=== PATIENT | female | born 1995 | race Caucasian/White ===

== ENCOUNTER 2018-08-10 09:28 | Observation (INO) | payer MEDICAID ==
[2018-08-10] MEDS ORDERED: ONDANSETRON 4 MG/2 ML VIAL ONE ×2 (09:34→13:24)
[2018-08-10] MEDS ORDERED: ONDANSETRON 4 MG/2 ML VIAL IVP ONE ×2 (09:34→09:36)
[2018-08-10] MEDS ORDERED: FAMOTIDINE 20 MG/NACL 50 ML IV ONE (09:36)
[2018-08-10] MEDS ORDERED: NS 1,000 ML IV ONE (09:36)
[2018-08-10] MEDS ORDERED: HYDROmorphONE/DILAUDID 2 MG/ML INJ IVP ONE ×2 (09:51→21:40)
--- NOTE | 2018-08-10 09:57 | EDPHY ---
H & P Time Seen by Provider: 08/10/18 09:34 HPI/ROS: HPI Abdominal pain, nausea, vomiting, diarrhea. 22-year-old female by private vehicle with her and son. This patient reports she woke up this morning with lower abdominal pain. This was followed by nausea and several episodes of nonbilious, nonbloody vomiting. She has also had watery diarrhea. No bloody or melenic stool. She reports that she is currently menstruating. He states that this pain is much worse and different from her prior menstrual cramps. She denies any ill contacts. No change in diet. No foreign travel. She denies any prior abdominal surgical history. Last meal was last night. ROS: Constitutional: No fever, no chills. No weakness. Eyes: No discharge. No changes in vision. ENT: No sore throat. No nasal congestion or rhinorrhea. Respiratory: No cough. No shortness of breath. Cardiac: No chest pain, no palpitations. Gastrointestinal: As above. Genitourinary: No hematuria. No dysuria or increased frequency with urination. Musculoskeletal: No back pain. No neck pain. No myalgias or arthralgias. Skin: No rashes. Neurological: No headache. No focal weakness or altered sensation. Past medical history: No past medical history. Social history: Nonsmoker. Here with her . Denies alcohol. Physical Exam: General Appearance: Alert, intermittently dry heaving. This patient is responding to questions appropriately and in full sentences. This patient appears well-hydrated and well-nourished. Eyes: Pupils equal and round no pallor or injection. No lid edema, erythema or injection. Respiratory: There are no retractions, lungs are clear to auscultation with good air movement bilaterally. Cardiovascular: Regular rate and rhythm. No murmur. Gastrointestinal: Abdomen is soft with vague right lower quadrant tenderness on palpation, no masses, bowel sounds normal. No focal tenderness at McBurney' s point. No Foss sign. Neurological: Motor sensory function is grossly intact. Cranial nerves are normal. Gait is normal. Skin: Warm and dry, no rashes. Musculoskeletal: Neck is supple and nontender. Extremities are symmetrical. All joints range without pain or impingement. Psychiatric: No agitation. No depression. Database: EKG: Imaging: CT abdomen and pelvis with IV contrast: Significant for likely early appendicitis. The distal appendix measures 9 mm with a appendical if proximal to it. There are no jim appendiceal inflammatory changes. Results were discussed with staff radiologist Dr. Maury Patterson. Procedures: Emergency department course: Triage vital signs reviewed and are normal. IV was placed. She was placed on a monitor. She was started on IV normal saline with 1 L to be given over the next hour. She was initially given 4 mg of IV Zofran and 20 mg of IV Pepcid. Her presentation is consistent with a gastroenteritis, however her right lower quadrant tenderness is concerning. CT abdomen and pelvis will be obtained to evaluate for appendicitis. She consents. 9:55 a.m., patient re-evaluated. She is still feeling nauseous. She also is complaining of pain. She will be given 0.5 mg of IV hydromorphone and 4 mg of IV Zofran. 11:15 a.m., patient re-evaluated. Resting comfortably at this time. Results of CT and diagnosis of probable early appendicitis discussed with her. General surgery paged. The patient has been NPO. 11:20 a.m., spoke with on-call general surgeon Dr. Antonio Devries. Case discussed in detail with him. He will see this patient in the emergency department shortly. 12:00 p.m., the patient has been seen and evaluated by Dr. Antonio Devries. Patient was given IV Flagyl and IV Rocephin. Patient will be taken to the OR shortly under the care of Dr. Devries. Her remaining emergency department course under my care has been uneventful. She was admitted to the OR in stable condition under the care of Dr. Antonio Devries. Differential Diagnosis: The differential diagnosis on this patient includes but is not limited to food borne illness, viral gastroenteritis, appendicitis, dysmenorrhea. This represents a partial list of diagnoses considered. These considerations are based on history, physical exam, past history, reassessment and diagnostic testing. Smoking Status: Never smoked Constitutional: Initial Vital Signs Temperature (C) 36.9 C 08/10/18 09:32 Heart Rate 84 08/10/18 09:32 Respiratory Rate 18 08/10/18 09:32 Blood Pressure 122/85 H 08/10/18 09:32 O2 Sat (%) 100 08/10/18 09:32 O2 Delivery Mode Room Air Allergies/Adverse Reactions: No Known Allergies Allergy (Unverified 08/10/18 09:30) Home Medications: Medication Instructions Recorded Nuva Ring 08/10/18 Medical Decision Making - Diagnostics Imaging Results: Imaging Impressions Abdomen CT 08/10/18 09:52 Impression: 1. Mild early appendicitis suspected with appendicolith about 3 cm from the appendiceal origin. 2. Incidental nonobstructive calculi lower pole right kidney measuring up to 2 mm. Findings discussed with Rodo Tipton MD at 11:03 hour, 08/10/2018. - Data Points Laboratory Results: Laboratory Results 08/10/18 09:40 08/10/18 09:40 08/10/18 08/10/18 08/10/18 10:05 09:40 09:40 WBC RBC Hgb POC Hgb 15.0 gm/dL gm/dL (12.6-16.3) Hct POC Hct 44 % % (38-47) MCV MCH MCHC RDW Plt Count MPV Neut % (Auto) Lymph % (Auto) Dougherty % (Auto) Eos % (Auto) Baso % (Auto) Nucleat RBC Rel Count Absolute Neuts (auto) Absolute Lymphs (auto) Absolute Monos (auto) Absolute Eos (auto) Absolute Basos (auto) Absolute Nucleated RBC Immature Gran % Immature Gran # POC Sodium 141 mEq/L mEq/L (135-145) Sodium 140 mEq/L mEq/L (135-145) POC Potassium 3.6 mEq/L mEq/L (3.3-5.0) Potassium 4.0 mEq/L mEq/L (3.3-5.0) POC Chloride 109 mEq/L mEq/L (97-110) Chloride 109 mEq/L mEq/L (97-110) Carbon Dioxide 16 mEq/l L mEq/l (22-31) Anion Gap 15 mEq/L mEq/L (8-16) POC BUN 14 mg/dL mg/dL (7-23) BUN 15 mg/dL mg/dL (7-23) Creatinine 0.8 mg/dL mg/dL (0.6-1.0) POC Creatinine 0.7 mg/dL mg/dL (0.6-1.0) Estimated GFR > 60 Glucose 117 mg/dL H mg/dL (70-100) POC Glucose 119 mg/dL H mg/dL (70-100) Calcium 10.1 mg/dL mg/dL (8.5-10.4) Total Bilirubin 0.5 mg/dL mg/dL (0.1-1.4) Conjugated Bilirubin 0.1 mg/dL mg/dL (0.0-0.5) Unconjugated Bilirubin 0.4 mg/dL mg/dL (0.0-1.1) AST 19 IU/L IU/L (14-46) ALT 28 IU/L IU/L (9-52) Alkaline Phosphatase 69 IU/L IU/L (38-126) Total Protein 7.5 g/dL g/dL (6.3-8.2) Albumin 4.4 g/dL g/dL (3.5-5.0) Lipase 72 IU/L IU/L (23-300) Beta HCG, Qual NEGATIVE 08/10/18 09:40 WBC 15.90 10^3/uL H 10^3/uL (3.80-9.50) RBC 4.04 10^6/uL L 10^6/uL (4.18-5.33) Hgb 14.5 g/dL g/dL (12.6-16.3) POC Hgb Hct 40.3 % % (38.0-47.0) POC Hct MCV 99.8 fL fL (81.5-99.8) MCH 35.9 pg H pg (27.9-34.1) MCHC 36.0 g/dL g/dL (32.4-36.7) RDW 11.4 % L % (11.5-15.2) Plt Count 262 10^3/uL 10^3/uL (150-400) MPV 10.3 fL fL (8.7-11.7) Neut % (Auto) 87.1 % H % (39.3-74.2) Lymph % (Auto) 7.3 % L % (15.0-45.0) Dougherty % (Auto) 4.5 % % (4.5-13.0) Eos % (Auto) 0.4 % L % (0.6-7.6) Baso % (Auto) 0.3 % % (0.3-1.7) Nucleat RBC Rel Count 0.0 % % (0.0-0.2) Absolute Neuts (auto) 13.86 10^3/uL H 10^3/uL (1.70-6.50) Absolute Lymphs (auto) 1.16 10^3/uL 10^3/uL (1.00-3.00) Absolute Monos (auto) 0.72 10^3/uL 10^3/uL (0.30-0.80) Absolute Eos (auto) 0.06 10^3/uL 10^3/uL (0.03-0.40) Absolute Basos (auto) 0.04 10^3/uL 10^3/uL (0.02-0.10) Absolute Nucleated RBC 0.00 10^3/uL 10^3/uL (0-0.01) Immature Gran % 0.4 % % (0.0-1.1) Immature Gran # 0.06 10^3/uL 10^3/uL (0.00-0.10) POC Sodium Sodium POC Potassium Potassium POC Chloride Chloride Carbon Dioxide Anion Gap POC BUN BUN Creatinine POC Creatinine Estimated GFR Glucose POC Glucose Calcium Total Bilirubin Conjugated Bilirubin Unconjugated Bilirubin AST ALT Alkaline Phosphatase Total Protein Albumin Lipase Beta HCG, Qual Medications Given: Discontinued Medications Hydromorphone HCl (Dilaudid) 0.5 mg IVP EDNOW ONE Stop: 08/10/18 09:52 Last Admin: 08/10/18 09:59 Dose: 0.5 mg Sodium Chloride (Ns) 1,000 mls @ 0 mls/hr IV EDNOW ONE; Wide Open PRN Reason: Protocol Stop: 08/10/18 09:37 Last Admin: 08/10/18 09:45 Dose: 1,000 mls Famotidine/Sodium Chloride (Pepcid 20 Mg (Premix)) 50 mls @ 200 mls/hr IV EDNOW ONE Stop: 08/10/18 09:50 Last Admin: 08/10/18 09:46 Dose: 50 mls Ondansetron HCl (Zofran) 4 mg IVP EDNOW ONE Stop: 08/10/18 09:35 Last Admin: 08/10/18 09:42 Dose: 4 mg Ondansetron HCl (Zofran) 4 mg IVP EDNOW ONE Stop: 08/10/18 09:37 Last Admin: 08/10/18 11:27 Dose: 4 mg Point of Care Test Results: Chemistry 08/10/18 10:05 POC Sodium 141 mEq/L mEq/L (135-145) POC Potassium 3.6 mEq/L mEq/L (3.3-5.0) POC Chloride 109 mEq/L mEq/L (97-110) POC BUN 14 mg/dL mg/dL (7-23) POC Creatinine 0.7 mg/dL mg/dL (0.6-1.0) POC Glucose 119 mg/dL H mg/dL (70-100) ISTAT H&H 08/10/18 10:05 POC Hgb 15.0 gm/dL gm/dL (12.6-16.3) POC Hct 44 % % (38-47) Urine HCG Results Negative Departure - Departure Disposition: [facility] Inpatient Acute Clinical Impression: Acute appendicitis, Vomiting and diarrhea Referrals: NONE *PRIMARY CARE P,. [Primary Care Provider] - As per Instructions
[2018-08-10 10:01] LABS: PLATELET COUNT 262 10^3/uL (150-400)
[2018-08-10] MEDS ORDERED: IOPAMIDOL (ISOVUE-300) 100 ML BTL ONE (10:30)
[2018-08-10] MEDS ORDERED: HYDROmorphONE/DILAUDID 1 MG/ML INJ IVP ONE (11:58)
[2018-08-10] MEDS ORDERED: HEPARIN 5,000 UNIT/0.5 ML INJ ONE ×2 (12:39→12:40)
[2018-08-10] MEDS ORDERED: ceFAZolin 1 GM/5 ML SYR ONE (12:40)
--- NOTE | 2018-08-10 12:56 | GHP ---
DATE OF ADMISSION: 08/10/2018 ADMITTING DIAGNOSIS: Acute appendicitis with appendicolith. HISTORY: The patient is a 22-year-old white female, who started her menstrual cycle yesterday. She was awoken from sleep today at 4 a.m. with lower abdominal pain. She started vomiting at approximately 7 a.m. Her pain was described as a bandlike lower abdominal pain, which became progressively worse. She was not hungry for breakfast. She has not had a recent upper respiratory tract infection. She has had diarrhea twice in the past two weeks. She has had no prior abdominal surgery and no prior similar symptoms. There is no history of inflammatory bowel disease. There is no history of antibiotic use in the last 6 months or travel in the last 6 months. She presented to the emergency room. A CT shows a mid appendix appendicolith with dilatation 9 mm distal to that point. Additional findings include right-sided kidney stones in the kidney. These are not obstructive. PAST MEDICAL HISTORY: She vapes greater than 7 times a day. She does drink 2 beers a night and occasionally more on weekends. She has no known drug allergies. She takes oral contraceptives. Her only surgery has been an ORIF of her right fifth metacarpal. There is no history of rheumatic fever, tuberculosis, hepatitis, or transfusions. REVIEW OF SYSTEMS: She wears lenses for visual correction. She has an eye issue that she is not clear about. She does have anxiety and depression for which she takes medical marijuana. Review of systems is otherwise quite negative. There are no limitations on her activities. No history of steroid use. PHYSICAL EXAMINATION: GENERAL: She is awake, alert, and nauseous. She does vomit once during the course of the evaluation. VITAL SIGNS: She is afebrile. Blood pressure is 121/73, heart rate 69, and room air saturation 98%. NEUROLOGICAL: There are no focal or lateralizing neurologic findings. She is oriented x3. Alma Coma Scale is 15. HEENT: Her skull is normocephalic and atraumatic. LYMPHATICS: I do not detect any cervical, supraclavicular, axillary, or inguinal lymphadenopathy. Thyroid is not enlarged. NECK: Supple and nontender. BACK: Unremarkable. LUNGS: Clear to auscultation. CARDIAC: Exam shows S1 and S2 to be normal. ABDOMEN: She is tender with cough just to the right of the midline in the low hypogastrium. Psoas sign is slightly positive. Obturator sign is negative. Bowel sounds are distinctly hypoactive. To palpation, the left upper quadrant is 6, left abdomen is 1, left lower quadrant is 1, epigastrium is 7, periumbilical area is 7, suprapubic area is 9, right upper quadrant is 9, right midabdomen is 9, and right lower quadrant is 9. LABORATORY DATA: Her white count is 15.9 with 87% neutrophils, hematocrit 40, and platelet count 262. Beta hCG is negative. Urinalysis is not available. IMPRESSION: A patient with 2 confounding issues, being her menstrual cycle and nephrolithiasis. Nephrolithiasis does not appear to be obstructive. Certainly , she has an appendicolith. If she had not had an appendicolith, I might try antibiotic treatment of this process, but, because of the appendicolith and the high risk for nonresolution or recurrence, I think laparoscopic appendectomy is the appropriate approach at this time. The patient understands this thought process and agrees to proceed as outlined, as does her . /[id number]/MODL MTDD
[2018-08-10] MEDS ORDERED: MIDAZOLAM 2 MG/2 ML VIAL IVP ONE (13:03)
--- NOTE | 2018-08-10 13:05 | PDANEPAE ---
ANE History of Present Illness lap appy ANE Past Medical History - Pulmonary History Hx Oxygen in Use at Home: No - Endocrine History Hx Diabetes: No ANE Review of Systems Review of Systems: - Exercise capacity Exercise capacity: >=4 METS ANE Patient History - Allergies Allergies/Adverse Reactions: No Known Allergies Allergy (Unverified 08/10/18 09:30) - Home Medications Home Medications: Nuva Ring 08/10/18 [Last Taken Unknown] - NPO status NPO Status: no food or drink >8 hours NPO Since - Liquids (Date): 08/10/18 NPO Since - Liquids (Time): 08:00 NPO Since - Solids (Date): 08/09/18 NPO Since - Solids (Time): 21:00 - Anes Hx Anes Hx: no prior problems - Smoking Hx Smoking Status: Never smoked - Alcohol Use Alcohol Use: Occasionally - Family Anes Hx Family Anes Hx: none ANE Labs/Vital Signs - Labs Result Diagrams: 08/10/18 09:40 08/10/18 09:40 - Vital Signs Blood Pressure: 127/74 Heart Rate: 59 Respiratory Rate: 16 O2 Sat (%): 100 Height: 167.64 cm Weight: 77.111 kg ANE Physical Exam - Airway Neck exam: FROM Mallampati Score: Class 1 Mouth exam: normal dental/mouth exam - Pulmonary Pulmonary: no respiratory distress - Cardiovascular Cardiovascular: regular rate and rhythym - ASA Status ASA Status: I, E ANE Anesthesia Plan Anesthesia Plan: general endotracheal anesthesia
[2018-08-10] MEDS ORDERED: DEXAMETHASONE 4 MG/ML VIAL ONE ×2 (13:23)
[2018-08-10] MEDS ORDERED: fentaNYL 100 MCG/2 ML INJ ONE ×3 (13:23→15:32)
[2018-08-10] MEDS ORDERED: PROPOFOL/EMULSION 500 MG/50 ML BOTTLE IV ONE (13:23)
[2018-08-10] MEDS ORDERED: LIDOCAINE HCL 160 MG/4 ML LTA KIT TP ONE (13:24)
[2018-08-10] MEDS ORDERED: LIDOCAINE 2% 100 MG/5 ML SYR ONE (13:24)
[2018-08-10] MEDS ORDERED: ROCURONIUM 50 MG/5 ML VIAL ONE (13:28)
[2018-08-10] MEDS ORDERED: ONDANSETRON 4 MG/2 ML VIAL IVP PRN ×2 (14:43→14:44)
[2018-08-10] MEDS ORDERED: DEXAMETHASONE 4 MG/ML VIAL IVP PRN (14:44)
[2018-08-10] MEDS ORDERED: PROMETHAZINE HCL 25 MG/ML INJ IVP PRN (14:44)
[2018-08-10] MEDS ORDERED: LR 500 ML IV PRN (14:44)
[2018-08-10] MEDS ORDERED: MEPERIDINE 25 MG/0.5 ML AMP IVP PRN (14:44)
[2018-08-10] MEDS ORDERED: PHENYLEPHRINE HCL 100 MCG/ML SYR IVP PRN (14:44)
[2018-08-10] MEDS ORDERED: LABETALOL HCL 5 MG/ML 20 ML MDV IVP PRN (14:44)
[2018-08-10] MEDS ORDERED: METOCLOPRAMIDE 10 MG/2 ML VIAL IVP PRN (14:44)
[2018-08-10] MEDS ORDERED: ACETAMINOPHEN 500 MG TAB PO PRN (14:44)
[2018-08-10] MEDS ORDERED: HYDROCODONE/APAP 5/325 TAB PO PRN (14:44)
[2018-08-10] MEDS ORDERED: oxyCODONE IR 5 MG TAB PO PRN (14:44)
[2018-08-10] MEDS ORDERED: ALBUTEROL 3 ML DEYVIAL IH PRN (14:44)
[2018-08-10] MEDS ORDERED: NALOXONE HCL 0.4 MG/ML INJ IVP PRN (14:44)
[2018-08-10] MEDS ORDERED: LR 1,000 ML IV SCH (15:00)
[2018-08-10] MEDS ORDERED: KETOROLAC 15 MG/1 ML SDV ONE (15:00)
[2018-08-10] MEDS ORDERED: ACETAMINOPHEN 500 MG TAB ONE (15:01)
--- NOTE | 2018-08-10 15:06 | POSTOPPROG ---
Post Op Note Date of Operation: 08/10/18 Surgeon: Alec Devries Anesthesiologist: Ezequiel Anesthesia: GET(General Endotracheal) Pre-op Diagnosis: acute appendicitis, appendicolith Post-op Diagnosis: acute unruptured appendicitis, appendicolith Indication: acute appendicitis, appendicolith Procedure: laparoscopic appendicetomy Findings: acute unruptured appendicitis, appendicolith Inf/Abcess present in the surg proc area at time of surgery?: No EBL: Minimal Total fluids administered: 750cc Complications: none Specimen(s): appendix
[2018-08-10] MEDS: fentaNYL 100 MCG/2 ML INJ IVP PRN ×2 (15:10→15:33)
[2018-08-10] MEDS: ACETAMINOPHEN 500 MG TAB PO SCH ×2 (15:12→23:13)
[2018-08-10] MEDS: KETOROLAC 15 MG/1 ML SDV IVP SCH ×2 (15:13→21:19)
--- NOTE | 2018-08-10 15:41 | GOP ---
DATE OF OPERATION: 08/10/2018 SURGEON: Alec Devries MD ANESTHESIA: General endotracheal. PREOPERATIVE DIAGNOSIS: Acute appendicitis with appendicolith. INDICATIONS: Acute appendicitis with appendicolith. POSTOPERATIVE DIAGNOSIS: Acute unruptured appendicitis with appendicolith. PROCEDURE PERFORMED: Laparoscopic appendectomy. FINDINGS: Acute unruptured appendicitis with appendicolith. ESTIMATED BLOOD LOSS: Scant. DESCRIPTION OF PROCEDURE: The patient was placed on the operating table in supine position. After induction of adequate general endotracheal anesthesia, the abdomen was carefully clipped, prepped, and draped. A surgical time-out was carried out and agreed to by all members of the operative team. A curvilinear incision was planned at the umbilicus. The skin was sharply incised. Dissection was carried out with Bovie electrocautery in a spreading technique to expose the rectus sheath bilaterally. This was incised in the midline. A pursestring of #0 PDS was placed. An 11-12 mm Monse trocar was positioned. Intra-abdominal insufflation was carried out to 15 mmHg. A 5 mm left lower quadrant oblique incision was made and a 5 mm port was placed. Similarly, a 5 mm port was placed through a transverse suprapubic incision. The patient was placed in Trendelenburg position. The appendix was easily identified. The mesoappendix was carefully grasped and divided with Harmonic Scalpel down to its base on the cecum. A single application of Endo- ROSA ISELA stapler was used to transect the appendix with a cuff of cecum. The specimen was placed in an EndoCatch bag and delivered via the umbilical port site. Pneumoperitoneum was re-established. The suture line was intact. Hemostasis was excellent. Irrigation was carried out. Photographic documentation of the ovaries and uterus was carried out. The small bowel was run for a distance of approximately 3 feet. There was no evidence of mesenteric adenitis or Meckel diverticulum. Ports were removed under direct vision. Inverted simple suture of #0 PDS was placed in the midpoint of the midline fascial defect and tied. The pursestring was now tied. This resulted in excellent closure. The subcutaneous tissue was well irrigated. TAt all site te skin was closed in inverted simple sutures of #4-0 Vicryl at all 3 sites. Mastisol and Steri-Strips were applied. Band-Aids were positioned. The patient was transferred to recovery in stable and satisfactory condition. FLUIDS: 750 cc. /[id number]/MODL MTDD
[2018-08-10] MEDS: HYDROmorphONE/DILAUDID 1 MG/ML INJ IVP PRN ×2 (17:14→19:08)
[2018-08-11] MEDS: HYDROmorphONE/DILAUDID 1 MG/ML INJ IVP PRN ×2 (00:37→09:20)
[2018-08-11] MEDS: KETOROLAC 15 MG/1 ML SDV IVP SCH ×2 (03:09→09:01)
[2018-08-11] MEDS: ACETAMINOPHEN 500 MG TAB PO SCH (07:08)
[2018-08-11 07:54] VITALS: BP 96/57
[2018-08-11] MEDS: HYDROmorphONE/DILAUDID 2 MG TAB PO PRN ×2 (09:41→10:23)
--- NOTE | 2018-08-11 11:13 | POSTANESTH ---
Post Anesthetic Evaluation Cardiovascular Status: Normal, Stable Respiratory Status: Normal, Stable Level of Consciousness/Mental Status: Can Participate in Eval Pain Control: Adequate, Prn Tx Ordered Nausea/Vomiting Control: Adequate, Prn Tx Ordered Complications Possibly Related to Anesthesia: None Noted
--- NOTE | 2018-08-11 11:24 | SOAPPROG ---
SOAP Progress Note Assessment/Plan: POD#1 08/11/18 11:21 Assessment: Eating, passing flatus,pain now controlled,VSS, incisions clean and dry- Doing well! Plan: Home today Subjective: My pain is under better control than last night Objective: Vital Signs Temp Pulse Resp BP Pulse Ox 36.4 C 65 16 96/57 L 93 08/11/18 07:53 08/11/18 07:53 08/11/18 07:53 08/11/18 07:53 08/11/18 07:53 08/10/18 08/11/18 08/12/18 05:59 05:59 05:59 Intake Total 2195 Output Total 925 Balance 1270 - Time Spent With Patient Time Spent With Patient: 15 Physical Exam - Physical Exam General Appearance: WD/WN, alert, no apparent distress Neck: full range of motion Respiratory: chest non-tender, lungs clear, normal breath sounds Cardiac/Chest: regular rate, rhythm Abdomen: normal bowel sounds, soft Pelvic Exam: deferred Rectal: deferred Back: Normal inspection Skin: normal color, warm/dry Extremities: normal range of motion, non-tender, other (walking in [place]) Neuro/Psych: no motor/sensory deficits, alert, normal mood/affect, oriented x 3 ICD10 Worksheet Patient Problems: Problems Problem Status Onset Acute appendicitis Acute Vomiting and diarrhea Acute
--- NOTE | 2018-08-11 12:17 | GDS ---
DISCHARGE DIAGNOSIS: Acute appendicitis with appendicolith. SURGERY: Laparoscopic appendectomy. CONDITION ON DISCHARGE: Improved. DISPOSITION: Home. DIET: Unrestricted, although I recommend she avoid constipating foods such as bananas, rice, applesa uce, and cheese. Texture is unlimited. MEDICATIONS: For pain control, she will receive Tylenol 1000 mg every 8 hours. She will take Torado l 10 mg every 6 hours for 5 days and then substitute Motrin 200 mg every 6 hours as needed. For lucian kthrough pain, she will take Dilaudid 2 to 4 mg p.o. every 4 hours p.r.n. severe pain. She will cont inue with her NuvaRing. I have cautioned her to use alternate form of contraception for the next wed and a half. ACTIVITY RESTRICTIONS: For the next 3 weeks, she is to shower only, keep her Steri-Strips in place, and lift less than 10 pounds. She is take a multivitamin with zinc, copper, and C. She is to watch for signs of infection. Superficial infection will be manifested by redness, warmth, swelling, and tenderness. Deep infection will be manifested by increasing abdominal pain, loss of a ppetite, fevers, chills, and general malaise. FOLLOWUP: She will follow up with Dr. Seth Baldwin's office in 2 weeks. HOSPITAL COURSE: Her hospital course was unremarkable. She initially had some postoperative pain is sues, which are resolved. She is doing well at this time, moving her bowels, and eating well. /[id number]/MODL
== END 2018-08-11 12:15 | disposition home or self-care (01) ==
LOC: FOB 16:08
PROVIDERS: ADMIT Surgery; ATTEND Surgery
PROC: 0DTJ4ZZ Resection of Appendix, Percutaneous Endoscopic Approach (ICD-10-PCS; principal; 2018-08-10 13:00)
DX: K35.80 Unspecified acute appendicitis (principal); E86.9 Volume depletion, unspecified
CPT/HCPCS: 44970; 74177; G0378; 82435-PO; 82565-PO; 82947-PO; 84132-PO; 84295-PO; 84520-PO; 85014-PO; 96374; J0696; J1100; J1170; J1644; J1885; J2001; J2270; J2405; J2704; J3010; Q9967